=== PATIENT | male | born 1935 | race Hispanic/Latino ===

== ENCOUNTER 2020-04-29 09:08 | Emergency (ER) | payer MEDICARE, OTHER ==
[2020-04-29 09:53] LABS: Hemoglobin 12.3 g/dL (13.5-17.5); Mean Corpuscular HGB CONC 30.2 g/dL (32.0-36.0); Mean Corpuscular Hemoglobin 25.7 pg (27.0-33.0); Mean Platelet Volume 9.7 fl (7.4-10.4); Platelet Count 358 10x3/uL (150-450); RBC Distribution Width 14.3 % (11.5-14.5); Red Blood Cell (RBC) Count 4.79 10x6/uL (4.32-5.72); White Blood Cell (WBC) Count 11.8 10x3/uL (3.5-10.5)
[2020-04-29 10:03] LABS: MDiff Complete? YES
[2020-04-29 10:05] LABS: ALT (SGPT) 12 U/L (8-55); AST (SGOT) 22 U/L (5-34); Albumin 3.5 g/dL (3.4-4.8); Alkaline Phosphatase 103 U/L (40-110); Anion Gap 11 mmol/L (10-20); BUN (Urea Nitrogen) 11 mg/dL (8.4-25.7); Bilirubin, Total 0.3 mg/dL (0.2-1.2); Calc. Creatinine Clearance 0 mL/min (70-130); Carbon Dioxide 28 mmol/L (23-31); Chloride 103 mmol/L (98-107); Globulin 4.7 g/dL (2.4-3.5); Glucose 98 mg/dL (83-110); Potassium 4.4 mmol/L (3.5-5.1); Protein, Total 8.2 g/dL (5.8-8.1); Sodium 138 mmol/L (136-145)
[2020-04-29 10:24] LABS: Eosinophils 1 % (0-10); Lymphocytes 53 % (21-51); Monocytes 7 % (0-10); Neutrophil 39 % (42-75)
[2020-04-29 10:26] LABS: Platelet Morphology Comment Appears Adequate; RBC Morphology Normal
[2020-04-29] MEDS ORDERED: cefTRIAXone\\ROCEPHIN 1 GM VIAL ONE (10:44)
[2020-04-29] MEDS ORDERED: Lidocaine 1% (PF) 30 ML VIAL ONE (10:44)
[2020-04-29 22:35] LABS: SARS-CoV-2 PCR by NAA Not Detected (NotDetected)
== END 2020-04-29 11:30 | disposition home or self-care (01) ==
LOC: CSHERS 09:08
DX: J18.9 Pneumonia, unspecified organism (principal); Z20.822 Contact with and (suspected) exposure to COVID-19; I10 Essential (primary) hypertension
CPT/HCPCS: 71045; 80053; 85025; 94760; 96372; 99284; U0003; U0005; 87635; J0696; J2001

== ENCOUNTER 2020-12-22 18:11 | Emergency (ER) | payer MEDICARE, OTHER ==
[2020-12-22] MEDS ORDERED: Ventolin HFA Inhaler 60 PUFF INHALER ONE (19:01)
[2020-12-22 19:46] LABS: SARS-CoV-2 NAA Rapid Test Not Detected (NotDetected)
== END 2020-12-22 21:15 | disposition home or self-care (01) ==
LOC: CSHERS 18:11
DX: J18.9 Pneumonia, unspecified organism (principal); Z20.822 Contact with and (suspected) exposure to COVID-19; I10 Essential (primary) hypertension
CPT/HCPCS: 71046; 99283; U0002